=== PATIENT | male | born 1940 | race Caucasian/White ===

== ENCOUNTER 2018-02-07 06:03 | Day surgery (SDC) | payer BC ==
[2018-02-07] MEDS: BUPIVACAINE 0.25% (MPF) 30 ML INJ INJ
[2018-02-07] MEDS ORDERED: FENTAnyl 50 MCG/ML VIAL (06:55)
[2018-02-07] MEDS ORDERED: LIDOCAINE 2% (SDV) 5 ML INJ (07:00)
[2018-02-07] MEDS ORDERED: CEFAZOLIN 1 GM INJ (07:00)
[2018-02-07] MEDS ORDERED: PROPOFOL 200 MG INJ (07:00)
[2018-02-07] MEDS ORDERED: ONDANSETRON 4 MG INJ (07:06)
[2018-02-07] MEDS ORDERED: PROPOFOL 20 ML (07:06)
[2018-02-07] MEDS ORDERED: BUPIVACAINE 0.25% (MPF) 30 ML INJ ×3 (07:18→08:29)
[2018-02-07] MEDS ORDERED: ONDANSETRON 4 MG INJ IV (09:00)
[2018-02-07] MEDS ORDERED: FENTAnyl 50 MCG/ML VIAL IV (09:00)
[2018-02-07] MEDS ORDERED: HYDROmorphONE (0.2 MG/ML) 10ML SYG IV (09:00)
[2018-02-07] MEDS ORDERED: OXYCODONE/ACETAMINOPHEN (5/325) TAB PO (09:00)
[2018-02-07] MEDS: ONDANSETRON 4 MG INJ IV (09:36)
[2018-02-07] MEDS: morphine 2 MG INJ IV (09:36)
[2018-02-07] MEDS: OXYCODONE/ACETAMINOPHEN (5/325) TAB PO (10:37)
== END 2018-02-07 11:00 | disposition home or self-care (01) ==
LOC: SDS 06:03
DX: K40.20 Bilateral inguinal hernia, without obstruction or gangrene, not specified as recurrent (principal); F17.200 Nicotine dependence, unspecified, uncomplicated
CPT/HCPCS: 49505